=== PATIENT | male | born 2000 ===

== ENCOUNTER 2018-08-10 15:55 | Inpatient (IN) | payer BC ==
[2018-08-10 16:05] VITALS: O2SAT 99
--- NOTE | 2018-08-10 17:36 | RAD ---
HISTORY: baseline COMPARISON: No prior. TECHNIQUE: Chest, one view. FINDINGS: Examination limited by habitus. LUNGS: No focal consolidation. Innumerable scattered tiny probable calcified granulomas. Please note that chest x-ray has limited sensitivity for the detection of pulmonary masses. PLEURA: No significant pleural effusion identified. No definite pneumothorax . CARDIOVASCULAR: Heart size appears within normal limits. No significant atherosclerotic calcification present. OSSEOUS STRUCTURES: No acute osseous abnormality identified. VISUALIZED UPPER ABDOMEN: Unremarkable. OTHER FINDINGS: None. IMPRESSION: Innumerable scattered tiny probable calcified granulomas.
--- NOTE | 2018-08-10 17:46 | ED PDOC ---
HPI: Psych/Substance Abuse Time Seen by Provider: 08/10/18 16:36 Chief Complaint (Nursing): Psychiatric Evaluation Chief Complaint (Provider): Psychiatric Evaluation History Per: Patient History/Exam Limitations: no limitations Current Symptoms Are (Timing): Still Present Additional Complaint(s): Haja Hogan is a 18 year old male with a past medical history of depression, who presents to the emergency department after being sent by his psychiatrist for possible inpatient treatment for depression given suicidal ideation. Patient states he has been suffering from depression for several years and that it has worsened over the past month. He states that he takes Zoloft without any improv ements. Patient has attempted to drown himself 1.5 weeks ago but he decided that he "did not want to be a vegetable". Patient has stated to have found hydromorphone and was going to take it but ended up deciding against it. He currently admits to feeling suicidal but denies any homicidal ideation, auditory or visual hallucination, or any physical complaints. Patient denies any drug or alcohol abuse. PMD: Katia Person Psychiatrist: Ahsan Ojeda Past Medical History Reviewed: Historical Data, Nursing Documentation, Vital Signs Vital Signs: Last Vital Signs Temp 98.0 F 08/10/18 15:59 Pulse 82 08/10/18 15:59 Resp 18 08/10/18 15:59 BP 144/79 08/10/18 15:59 Pulse Ox 99 08/10/18 15:59 - Medical History PMH: Depression - Family History Family History: States: Unknown Family Hx - Allergies Allergies/Adverse Reactions: Allergies Allergy/AdvReac Type Severity Reaction Status Date / Time No Known Allergies Allergy Verified 08/10/18 15:59 Review of Systems ROS Statement: Except As Marked, All Systems Reviewed And Found Negative Constitutional: Negative for: Fever, Chills, Sweats, Malaise, Weight loss Cardiovascular: Negative for: Chest Pain, Palpitations Respiratory: Negative for: Cough, Shortness of Breath Psych: Positive for: Suicidal ideation. Negative for: Other (homicidal ideation; auditory or visual hallucinations ) Physical Exam - Reviewed Nursing Documentation Reviewed: Yes Vital Signs Reviewed: Yes - Physical Exam Cardiovascular/Chest: Positive for: Regular Rate, Rhythm. Negative for: Murmur Respiratory: Positive for: Normal Breath Sounds. Negative for: Respiratory Distress Neurologic/Psych: Positive for: Alert, Oriented - Laboratory Results Result Diagrams: 08/10/18 19:43 08/10/18 19:43 - ECG O2 Sat by Pulse Oximetry: 99 (RA) Pulse Ox Interpretation: Normal Medical Decision Making Medical Decision Making: Initial Time: 17:18 Plan: --Crisis evaluation --CMP --Urinalysis --Chest X-ray --alcohol serum --Urine Drug screen --1:1 observation Time: 17:33 Chest X-ray FINDINGS: Examination limited by habitus. LUNGS: No focal consolidation. Innumerable scattered tiny probable calcified granulomas. Please note that chest x-ray has limited sensitivity for the detection of pulmonary masses. PLEURA: No significant pleural effusion identified. No definite pneumothorax . CARDIOVASCULAR: Heart size appears within normal limits. No significant atherosclerotic calcification present. OSSEOUS STRUCTURES: No acute osseous abnormality identified. VISUALIZED UPPER ABDOMEN: Unremarkable. OTHER FINDINGS: None. IMPRESSION: Innumerable scattered tiny probable calcified granulomas. Time: 19:30 Chest x-ray shows likely calcified granuloma Patient denies any history of TB, sarcoidosis, recent fevers, coughs, hemptosis or recent PPD or exposure to TB. Case d/w Hospitalist no need for further evaluation at this time given that patient is asymptomatic. Needs outpatient f/u. Pt is medically stable for psych admission. Scribe Attestation: Documented by Pepe Oneal, acting as a scribe for Yeni Sandoval PA-C. Provider Scribe Attestation: All medical record entries made by the Scribe were at my direction and personally dictated by me. I have reviewed the chart and agree that the record accurately reflects my personal performance of the history, physical exam, medical decision making, and the department course for this patient. I have also personally directed, reviewed, and agree with the discharge instructions and disposition. Disposition - Clinical Impression Clinical Impression: Depression - Patient ED Disposition Is Patient to be Admitted: Yes Discussed With : Kandace Fields Doctor Will See Patient In The: Hospital Counseled Patient/Family Regarding: Studies Performed, Diagnosis, Need For Followup - Disposition Disposition: Transfer of Care Disposition Time: 22:45 Condition: STABLE - POA Present On Arrival: None
[2018-08-10 19:55] LABS: BASO % 0.5 % (0.0-2.0); EOS # 0.2 K/uL (0.0-0.7); EOS % 2.4 % (0.0-4.0); HEMOGLOBIN 14.6 g/dL (12.0-18.0); LYMPH # 2.7 K/uL (1.0-4.3); LYMPH % 26.4 % (20.0-40.0); MEAN CELL VOLUME 85.6 fl (80.0-94.0); MEAN CORPUSCULAR HEMOGLOBIN 28.7 pg (27.0-31.0); MEAN CORPUSCULAR HGB CONC 33.6 g/dL (33.0-37.0); MONO # 0.8 K/uL (0.0-0.8); MONO % 7.7 % (0.0-10.0); NEUT # 6.4 K/uL (1.8-7.0); RBC 5.07 Mil/uL (4.40-5.90); RED CELL DISTRIBUTION WIDTH 12.9 % (11.5-14.5); WHITE BLOOD COUNT 10.2 K/uL (4.8-10.8)
[2018-08-10 19:58] LABS: SQUAMOUS EPITHIAL < 1 /hpf (0-5); URINE BILIRUBIN NEGATIVE (NEGATIVE); URINE BLOOD NEGATIVE (NEGATIVE); URINE CLARITY CLOUDY (Clear); URINE COLOR YELLOW (YELLOW); URINE GLUCOSE (UA) NEG (Normal); URINE LEUKOCYTE ESTERASE NEG Leu/uL (Negative); URINE PROTEIN NEGATIVE (NEGATIVE); URINE UROBILINOGEN 0.2-1.0 mg/dL (0.2-1.0)
[2018-08-10 20:04] LABS: ALB/GLOB RATIO 1.2 (1.0-2.1); ALBUMIN 4.8 g/dL (3.5-5.0); ALT/SGPT 45 U/L (21-72); AST/SGOT 38 U/L (17-59); BLOOD UREA NITROGEN 14 mg/dl (9-20); CALCIUM 9.8 mg/dL (8.4-10.2); GFR NON-AFRICAN AMERICAN > 60
[2018-08-10 20:19] LABS: BARBITURATES, UR NEGATIVE (NEGATIVE); BENZODIAZEPINES, UR NEGATIVE (NEGATIVE); OPIATES, UR NEGATIVE (NEGATIVE); PHENCYCLIDINE, UR NEGATIVE (NEGATIVE)
[2018-08-10] MEDS ORDERED: Magnesium Hydroxide Susp 30 ml UD PO PRN (22:14)
[2018-08-10] MEDS ORDERED: DiphenhydrAMINE 50 mg/ml Inj IM PRN (22:14)
[2018-08-10] MEDS ORDERED: Alum-Mag Hydrox-Simethicone Susp (30 mL) PO PRN (22:14)
--- NOTE | 2018-08-10 22:51 | PCM.BM ---
<Shanna Vo - Last Filed: 08/10/18 22:48> Treatment Plan Problems - Problems identified on initial assessmt Self Harm Date Initiated: 08/10/18 Time Initiated: 22:49 Assessment reference: NA Status: Active Suicidal Ideation Date Initiated: 08/10/18 Time Initiated: 22:49 Assessment reference: NA Status: Active Hopelessness/Helplessness Date Initiated: 08/10/18 Time Initiated: 22:50 Assessment reference: NA Status: Active Ineffective Coping Date Initiated: 08/10/18 Time Initiated: 22:50 Assessment reference: NA Status: Active Treatment assets and liabiliti Patient Assests: cooperative, self-reliant, ADL independent, physically healthy, good support system, negotiates basic needs, cognitively intact Patient Liabilities: other (history of being bullied) - Milieu Protocol Maintain good personal hygiene: daily Encourage regular showers, daily Remind patient to perform daily oral care, other Assist patient to perform ADL's (prn) Conduct patient checks and document Observation sheet: Q15 minutes Maintain personal safety: every shift Educate patient to report safety concerns to staff, every shift Monitor environment for contraband/sharps Medication safety: Monitor for expected outcome, potential side effects: every shift, Assess barriers to learning: every shift, Assess readiness for medication education: every shift <Lester Clark - Last Filed: 08/17/18 10:08> - Diagnosis (1) Depression Status: Acute Interventions: 08/17/18 10:08 psychotherapy, pharmacotherapy
--- NOTE | 2018-08-11 07:50 | CARD ---
APPROVED REPORT Date of service: 08/10/2018 EKG Measurement Heart [id number] <Conclusion> Normal sinus rhythm Normal Electrocardiogram
[2018-08-11 08:45] LABS: T4 6.79 ug/dl (5.5-11.0)
--- NOTE | 2018-08-11 15:20 | PCM.PSYCH ---
Initial Psychiatric Evaluation - Initial Psychiatric Evaluation Type of Admission: Voluntary Legal Status: Capacity Chief Complaint (in patient's own words): I want to give up on my life History of Present Illness and Precipitating Events: pt is 18ys old male with previous psychiatric diagnosis of depression referred to ER by private psychiatrist after expressing suicidal ideation with plan to drown himself. pt has been in therapy since age 9 for depression due to bullying, has been seeing private psychiatrist for past four years, placed on zoloft 100 mg , pt has previous suicidal attempt two years ago trying to hang himself and stop ped himself reported for past month depression is worse as he has been unable to perform in school with possibility of loosing his scholarship and for recent of his grand mother reported poor motivation, low energy, lack of interest in any activity, continues to have passive suicidal thoughts without active plan on the unit, denied perceptual disturbances, denied substance use collateral information Mother is tearful and believes pt requires inpatient admission. Mother states that pt has several stressors of recent such as failing school which will result into losing his scholarship. Second stressor his grandmother recently as well as his human resources designate. Mother reports a hx of suicide attempts in the family and states that pt's cousin committed suicide this year. Current Medications: Active Medications Generic Name Dose Route Start Last Admin Trade Name Freq PRN Reason Stop Dose Admin Acetaminophen 650 mg 08/10/18 22:14 Tylenol 325mg Tab PO Q4 PRN pain 4-7 Al Hydrox/Mg Hydrox/Simethicone 30 ml 08/10/18 22:14 Maalox Plus 30 Ml PO Q4 PRN Dyspepsia Bupropion HCl 100 mg 08/12/18 09:00 Wellbutrin PO DAILY CHARLEE Diphenhydramine HCl 50 mg 08/10/18 22:14 Benadryl IM Q6 PRN Extrapyramidal S/S Unable PO Diphenhydramine HCl 50 mg 08/10/18 22:14 Benadryl PO Q6 PRN Extrapyramidal Symptoms Diphenhydramine HCl 50 mg 08/10/18 22:14 Benadryl PO HS PRN Sleep Haloperidol 5 mg 08/10/18 22:14 Haldol PO Q4 PRN Agitation Haloperidol Lactate 5 mg 08/10/18 22:14 Haldol IM Q4 PRN Agitation, Unable to Take PO Lorazepam 1 mg 08/10/18 22:54 Ativan IM Q8 PRN Anxiety/Agitation,Unable PO Lorazepam 1 mg 08/10/18 22:54 Ativan PO Q8 PRN Anxiety/Agitation Magnesium Hydroxide 30 ml 08/10/18 22:14 Milk Of Magnesia PO HS PRN Constipation Sertraline HCl 50 mg 08/12/18 11:05 Zoloft PO DAILY CHARLEE Trazodone HCl 50 mg 08/11/18 11:03 Desyrel PO HS PRN Insomnia Past Psychiatric History - Past Psychiatric History Explanation of prior treatment: no previous hospitalizations History of ETOH/Drug Use: denied History of Family Illness: denied Pertinent Medical Hx (Current Medical&Sleep Prob, Allergies): Allergies Allergy/AdvReac Type Severity Reaction Status Date / Time No Known Allergies Allergy Verified 08/10/18 15:59 Mental Status Examination - Personal Presentation Personal Presentation: Looks stated age - Affect Affect: Constricted, Depressed - Motor Activity Motor Activity: Psychomotor Retardation - Reliability in Providing Information Reliability in Providing Information: Fair - Speech Speech: Relevant - Mood Mood: Depressed, Anxious - Formal Thought Process Formal Thought Process: Circumstantial - Obsessions/Compulsions Obsessions: No Compulsions: No - Cognitive Functions Orientation: Person, Place, Situation Sensorium: Alert Attention/Concentration: Attentive Judgement: Imparied, as evidence by: Poor judgement - Risk Risk: Suicidal, Diminished functioning - Strength & Assets Inventory Strength & Assets Inventory: Family support - Limitations Additional comments: educational problems DSM 5 DX - DSM 5 DSM 5 Diagnosis: major depression recurrent severe - Recommended/Plan of Treatment Treatment Recommendations and Plan of Treatment: cross taper zoloft with wellbutrin CBT motivational and group therapy monitor p for psychopharmacological effects and side effect profile
--- NOTE | 2018-08-12 11:36 | PCM.PYCHPN ---
Psychiatric Progress Note - Psychiatric Progress Note Patient seen today, length of contact: pt evaluated discussed with team chart reviewed Patient Chief Complaint: I still feel down Problems Identified/Issues Discussed: pt evaluated, reported depressed mood, affect dysphoric, reported low energy poor motivation, poor concentration, discussed gradual increase in dose of wellbutrin, denied command hallucinations denied S/H I Medical Problems: no previous hospitalizations DSM 5 Symptoms Update: major depression Medication Change: Yes (increase wellbutrin) Medical Record Reviewed: Yes Mental Status Examination - Cognitive Function Orientation: Person, Place, Situation Attention: WNL Concentration: Poor Association: WNL Fund of Knowledge: WNL Decription of patient's judgement and insights: partial insight poor judgment - Mood Mood: Depressed, Anxious - Affect Affect: Constricted, Depressed - Speech Speech: Soft - Formal Thought Process Formal Thought Process: Circumstantial - Suicidal Ideation Suicidal Ideation: No - Homicidal Ideation Homicidal Ideation: No Goal/Treatment Plan - Goal/Treatment Plan Need for Continued Stay: Severe depression anxiety, Discharge may exacerbated symptoms Progress Toward Problem(s) and Goals/Treatment Plan: cross taper zoloft with wellbutrin CBT motivational and group therapy monitor p for psychopharmacological effects and side effect profile
--- NOTE | 2018-08-12 17:03 | CP.PCM.CON ---
History of Present Illness - History of Present Illness History of Present Illness: 18 yo male with history of depression admitted to psyche unit because of suicidal ideation. Review of Systems - Review of Systems All systems: reviewed and no additional remarkable complaints except (aside from those mentioned above, 12 point system review were negative by me) Past Patient History - Tetanus Immunizations Tetanus Immunization: Unknown - Past Social History Smoking Status: Never Smoked Chewing Tobacco Use: No Cigar Use: No Alcohol: Occasional Home Situation {Lives}: With Family - CARDIAC Hx Cardiac Disorders: No - PULMONARY Hx Respiratory Disorders: No - NEUROLOGICAL Hx Neurological Disorder: No - HEENT Hx HEENT Problems: No - RENAL Hx Chronic Kidney Disease: No - ENDOCRINE/METABOLIC Hx Endocrine Disorders: No - HEMATOLOGICAL/ONCOLOGICAL Hx Blood Disorders: No - INTEGUMENTARY Hx Dermatological Problems: No - MUSCULOSKELETAL/RHEUMATOLOGICAL Hx Musculoskeletal Disorders: No - GASTROINTESTINAL Hx Gastrointestinal Disorders: No - GENITOURINARY/GYNECOLOGICAL Hx Genitourinary Disorders: No - PSYCHIATRIC Hx Depression: Yes - SURGICAL HISTORY Hx Surgeries: Yes Other/Comment: foot surgery 2 years ago - ANESTHESIA Hx Anesthesia: No Hx Anesthesia Reactions: No Meds Allergies/Adverse Reactions: Allergies Allergy/AdvReac Type Severity Reaction Status Date / Time No Known Allergies Allergy Verified 08/10/18 15:59 - Medications Medications: Current Medications Acetaminophen (Tylenol 325mg Tab) 650 mg PO Q4 PRN PRN Reason: pain 4-7 Al Hydrox/Mg Hydrox/Simethicone (Maalox Plus 30 Ml) 30 ml PO Q4 PRN PRN Reason: Dyspepsia Bupropion HCl (Wellbutrin Sr 150 Mg) 150 mg PO DAILY CHARLEE Diphenhydramine HCl (Benadryl) 50 mg IM Q6 PRN PRN Reason: Extrapyramidal S/S Unable PO Diphenhydramine HCl (Benadryl) 50 mg PO Q6 PRN PRN Reason: Extrapyramidal Symptoms Diphenhydramine HCl (Benadryl) 50 mg PO HS PRN PRN Reason: Sleep Haloperidol (Haldol) 5 mg PO Q4 PRN PRN Reason: Agitation Haloperidol Lactate (Haldol) 5 mg IM Q4 PRN PRN Reason: Agitation, Unable to Take PO Lorazepam (Ativan) 1 mg IM Q8 PRN PRN Reason: Anxiety/Agitation,Unable PO Lorazepam (Ativan) 1 mg PO Q8 PRN PRN Reason: Anxiety/Agitation Magnesium Hydroxide (Milk Of Magnesia) 30 ml PO HS PRN PRN Reason: Constipation Sertraline HCl (Zoloft) 25 mg PO DAILY CHARLEE Trazodone HCl (Desyrel) 50 mg PO HS PRN PRN Reason: Insomnia Physical Exam - Constitutional Appears: No Acute Distress - Head Exam Head Exam: ATRAUMATIC - Eye Exam Eye Exam: absent: Scleral icterus - ENT Exam ENT Exam: Mucous Membranes Moist - Neck Exam Neck exam: Negative for: Meningismus - Respiratory Exam Respiratory Exam: absent: Rales, Rhonchi, Wheezes, Respiratory Distress - Cardiovascular Exam Cardiovascular Exam: REGULAR RHYTHM, +S1, +S2 - GI/Abdominal Exam GI & Abdominal Exam: Soft. absent: Tenderness - Rectal Exam Rectal Exam: Deferred - Extremities Exam Extremities exam: Negative for: calf tenderness, pedal edema - Back Exam Back exam: NORMAL INSPECTION - Neurological Exam Neurological exam: Alert, Oriented x3 - Psychiatric Exam Psychiatric exam: Normal Affect - Skin Skin Exam: Dry, Intact Results - Vital Signs Recent Vital Signs: Last Vital Signs Temp 97.5 F L 08/12/18 09:40 Pulse 79 08/12/18 09:40 Resp 16 08/12/18 09:40 BP 128/71 08/12/18 09:40 Pulse Ox 99 08/10/18 23:41 - Labs Result Diagrams: 08/10/18 19:43 08/10/18 19:43 Assessment & Plan (1) Suicidal ideation Status: Acute Comment: psyche is managing (2) Depression Status: Acute
[2018-08-13] MEDS: buPROPion SR 150 MG TABLET PO SCH (09:06)
--- NOTE | 2018-08-13 13:20 | PCM.PYCHPN ---
Psychiatric Progress Note - Psychiatric Progress Note Patient seen today, length of contact: pt evaluated discussed with team chart reviewed Patient Chief Complaint: I feel better with increasing the wellbutrin Problems Identified/Issues Discussed: pt evaluated, reported better mood with increasing the wellbutrin, no reported side effects, pt reported improved level of energy , more visible in day room, participating in groups, denied any current thoughts of self harm, denied command hallucinations denied S/H I Medical Problems: no previous hospitalizations DSM 5 Symptoms Update: major depression recurrent Medication Change: Yes (discontinue zoloft) Medical Record Reviewed: Yes Mental Status Examination - Cognitive Function Orientation: Person, Place, Situation Attention: WNL Concentration: WNL Association: WNL Fund of Knowledge: WN Decription of patient's judgement and insights: partial insight poor judgment - Mood Mood: Depressed, Anxious - Affect Affect: Constricted, Depressed - Speech Speech: Soft - Formal Thought Process Formal Thought Process: Circumstantial - Suicidal Ideation Suicidal Ideation: No - Homicidal Ideation Homicidal Ideation: No Goal/Treatment Plan - Goal/Treatment Plan Need for Continued Stay: Severe depression anxiety, Discharge may exacerbated symptoms Progress Toward Problem(s) and Goals/Treatment Plan: discontinue zoloft wellbutrin sr 150mg daily CBT motivational and group therapy monitor p for psychopharmacological effects and side effect profile
[2018-08-14] MEDS: buPROPion SR 150 MG TABLET PO SCH (09:20)
--- NOTE | 2018-08-14 09:54 | PCM.PYCHPN ---
Psychiatric Progress Note - Psychiatric Progress Note Patient seen today, length of contact: Pt evaluated, case discussed w/ team, chart reviewed Patient Chief Complaint: Depression Problems Identified/Issues Discussed: Patient continues to report feeling depressed. He denies acute AH/VH/SI/HI. He denies current ideation to harm himself. He reports that the Wellbutrin initially make him feel jittery, but reports that he no longer feels that way. No current adverse efffects to medications reported. Medication Change: No Medical Record Reviewed: Yes Consults ordered or reviewed: Medicine consult Mental Status Examination - Cognitive Function Orientation: Person, Place, Situation, Time Memory: Intact Attention: WNL Concentration: WNL Association: WNL Fund of Knowledge: WNL Decription of patient's judgement and insights: Improving I/J - Mood Mood: Depressed - Affect Affect: Constricted - Speech Speech: Appropriate - Formal Thought Process Formal Thought Process: No Impairment Psychotic Thoughts and Behaviors: No AH/VH/paranoia/delusions - Suicidal Ideation Suicidal Ideation: No - Homicidal Ideation Homicidal Ideation: No Goal/Treatment Plan - Goal/Treatment Plan Need for Continued Stay: Severe depression anxiety, Discharge may exacerbated symptoms Progress Toward Problem(s) and Goals/Treatment Plan: Major Depressive Disorder -Continue current medications -Individual and group therapy -Psychoeducation -Disposition planning
[2018-08-15] MEDS: buPROPion SR 150 MG TABLET PO SCH (09:03)
--- NOTE | 2018-08-15 10:16 | PCM.PYCHPN ---
Psychiatric Progress Note - Psychiatric Progress Note Patient seen today, length of contact: Pt evaluated, case discussed w/ team, chart reviewed Patient Chief Complaint: Depression Problems Identified/Issues Discussed: Patient reports that his mood is improving. He feels less depressed. He denies acute AH/VH/SI/HI. He denies current ideation to harm himself. No current adverse effects to medications reported. Medication Change: No Medical Record Reviewed: Yes Consults ordered or reviewed: Medicine consult Mental Status Examination - Cognitive Function Orientation: Person, Place, Situation, Time Memory: Intact Attention: WNL Concentration: WNL Association: WNL Fund of Knowledge: [facility] Decription of patient's judgement and insights: Improving I/J - Mood Mood: Depressed - Affect Affect: Constricted - Speech Speech: Appropriate - Formal Thought Process Formal Thought Process: No Impairment Psychotic Thoughts and Behaviors: No AH/VH/paranoia/delusions - Suicidal Ideation Suicidal Ideation: No - Homicidal Ideation Homicidal Ideation: No Goal/Treatment Plan - Goal/Treatment Plan Need for Continued Stay: Severe depression anxiety, Discharge may exacerbated symptoms Progress Toward Problem(s) and Goals/Treatment Plan: Major Depressive Disorder -Continue current medications -Individual and group therapy -Psychoeducation -Disposition planning
[2018-08-16] MEDS: buPROPion SR 150 MG TABLET PO SCH (08:27)
--- NOTE | 2018-08-16 14:17 | PCM.PYCHPN ---
Psychiatric Progress Note - Psychiatric Progress Note Patient seen today, length of contact: Pt evaluated, case discussed w/ team, chart reviewed Patient Chief Complaint: was feeling depressed little less is somewhat isolative per staff a times. rx adherent. denies side effects medications Medical Problems: per chart Diagnostic Results: per psychiatry per medicine per nursing per social science professor per recreational therapy Medication Change: No Medical Record Reviewed: Yes Consults ordered or reviewed: pt seen by hospitalist Mental Status Examination - Cognitive Function Orientation: Person, Place, Situation, Time Memory: Intact Attention: WNL Concentration: WNL Association: WNL Fund of Knowledge: WN Decription of patient's judgement and insights: impaired - Mood Mood: Depressed - Affect Affect: Constricted - Speech Speech: Appropriate - Formal Thought Process Formal Thought Process: No Impairment - Suicidal Ideation Suicidal Ideation: No - Homicidal Ideation Homicidal Ideation: No Goal/Treatment Plan - Goal/Treatment Plan Need for Continued Stay: Severe depression anxiety, Discharge may exacerbated symptoms Progress Toward Problem(s) and Goals/Treatment Plan: inpt milieu adjust meds per status clinical observation and vital signs per protocol and per clinical status discharge planning in progress Estimated Date of D/C: 08/17/18 - Smoking Cessation Smoking Cessation Initiated: No Reason for not providing: deferred
[2018-08-17 09:07] VITALS: BP 114/60; PULSE 75; RESP 17; TEMP 97
[2018-08-17] MEDS: buPROPion SR 150 MG TABLET PO SCH (09:07)
--- NOTE | 2018-08-17 11:02 | PCM.PYCHDC ---
Mental Status Examination - Mental Status Examination Orientation: Person, Place, Situation Memory: Intact Mood: Neutral Affect: Broad Speech: Appropriate Attention: WNL Concentration: WNL Association: WNL Fund of Knowledge: WNL Formal Thought Process: No Impairment Description of patient's judgement and insight: partial insight and fair judgment Psychotic Thoughts and Behaviors: pt denied psychotic symptoms, non elicited Suicidal Ideation: No Current Homicidal Ideation?: No Discharge Summary - Discharge Note Reason for Hospitalization: pt is 18ys old male with previous psychiatric diagnosis of depression referred to ER by private psychiatrist after expressing suicidal ideation with plan to drown himself. pt has been in therapy since age 9 for depression due to bullying, has been seeing private psychiatrist for past four years, placed on zoloft 100 mg , pt has previous suicidal attempt two years ago trying to hang himself and stopped himself reported for past month depression is worse as he has been unable to perform in school with possibility of loosing his scholarship and for recent of his grand mother reported poor motivation, low energy, lack of interest in any activity, continues to have passive suicidal thoughts without active plan on the unit, denied perceptual disturbances, denied substance use Consultations:: List each consultation separately and include: 1. Reason for request. 2. Findings. 3. Follow-up Summary of Hospital Course include:: 1. Description of specific treatment plan utilized for patients during their course of treatmen. 2. Summarize the time- course for resolution of acute symptoms and/or regressed behaviors. 3. Describe issues identified and worked on during hospitalization. 4. Describe medication utilized. 5. Describe medical problems identified and treated. 6. Reassessment of suicide risk Summary of Hospital Course: pt on admission presented with depressed mood and affect decreased energy and low motivation, pt was started on wellbutrin , it was gradually increased to 150 mg daily, zoloft was gradually discontinued CBT provided, pt attended groups was compliant with treatment, no reported side effects on discharge pt mental status was stable, denied any current suicidal or homicidal ideation, denied perceptual disturbances treatment plan discussed with mother upon pt consent follow up arranged by social sciences chair at [facility] program - Diagnosis (1) Depression Current Visit: Yes Status: Acute - Final Diagnosis (DSM 5) Condition upon Discharge: STABLE DSM 5: major depression recurrent severe without psychotic features Disposition: HOME/ ROUTINE Follow-up Treatment Plan: discontinue zoloft wellbutrin sr 150mg daily CBT motivational and group therapy monitor p for psychopharmacological effects and side effect profile Prescriptions/Medication Reconciliation: RX: buPROPion SR [Wellbutrin SR 150 MG] 150 mg PO DAILY 30 Days #30 tab RX: traZODone [Desyrel] 50 mg PO HS PRN 30 Days #30 tab PRN Reason: Insomnia - Antipsychotic Medications Pt discharged on 2 or more routine antipsychotic medications: No
== END 2018-08-17 14:45 | disposition home or self-care (01) | DRG 885 ==
LOC: H.ER 15:55 → H.ERHOLD 20:47 → H.PSYCH 22:09
PROVIDERS: ADMIT Psychiatry & Neurology Psychiatry; ATTEND Psychiatry & Neurology Psychiatry
PROC: GZ58ZZZ Individual Psychotherapy, Cognitive-Behavioral (ICD-10-PCS; 2018-08-10)
PROC: GZHZZZZ Group Psychotherapy (ICD-10-PCS; principal; 2018-08-12)
DX: F33.2 Major depressive disorder, recurrent severe without psychotic features (principal); R45.851 Suicidal ideations